=== PATIENT | female | born 1990 | race African-American/Black ===

== ENCOUNTER 2017-04-08 14:24 | Emergency (ER) | payer MEDICAID ==
[~2017-04-08] VITALS: Ht 160 cm; Wt 72.0 kg
[2017-04-08] MEDS ORDERED: Antibiotic PO (15:12)
[2017-04-08 16:18] LABS: BASOPHILS % (AUTO) 1.3 % (0.0-2.0); EOSINOPHILS % (AUTO) 3.2 % (1.0-6.0); HEMOGLOBIN 13.8 g/dL (12.0-16.0); LYMPHOCYTES # (AUTO) 2.1 K/uL (1.0-4.8); LYMPHOCYTES % (AUTO) 28.2 % (22.0-44.0); MEAN CORPUSCULAR HEMOGLOBIN 32.2 pg (26.0-34.0); MEAN CORPUSCULAR HGB CONC 34.4 G/dL (31.0-37.0); MEAN CORPUSCULAR VOLUME 94 fL (80-100); MONOCYTES # (AUTO) 0.4 K/uL (0.1-1.0); MONOCYTES % (AUTO) 4.7 % (2.0-9.0); NEUTROPHILS # (AUTO) 4.7 K/uL (1.8-7.7); NEUTROPHILS % (AUTO) 62.6 % (40.0-70.0); PLATELET COUNT (AUTO) 305 K/uL (150-450); RED BLOOD CELL COUNT(AUTO) 4.28 MIL/uL (4.00-5.20); RED CELL DISTRIBUTION WIDTH 13.5 % (11.5-14.5); WHITE BLOOD COUNT (AUTO) 7.5 K/uL (4.5-11.0)
[2017-04-08] MEDS ORDERED: IBUPROFEN 600 MG TABLET PO ONE (17:15)
[2017-04-08 19:15] VITALS: BP 120/71
== END 2017-04-08 19:17 | disposition home or self-care (01) ==
LOC: EMS 14:26
DX: O02.1 Missed abortion (principal); J45.909 Unspecified asthma, uncomplicated; Z3A.01 Less than 8 weeks gestation of pregnancy
CPT/HCPCS: 76801; 76817; 86901; 99285